=== PATIENT | male | born 1995 | race Caucasian/White ===

== ENCOUNTER 2018-10-24 00:53 | Emergency (ER) | payer BC ==
--- NOTE | 2018-10-24 00:55 | EDM.PDOC ---
ED HPI GENERAL MEDICAL PROBLEM - General Stated Complaint: CHEST PAIN,DIZZINESS,TROUBLE BREATHING Time Seen by Provider: 10/24/18 00:54 Source of Information: Reports: Patient History Limitations: Reports: No Limitations - History of Present Illness INITIAL COMMENTS - FREE TEXT/NARRATIVE: 22 y.o.w.m came to the ed due to epigastric and chest pt. Pt was previously in healthy condition. No N/V/D no dizziness, no other acute med issues. BP 138/67 RR 18 Pulse ox 100% on RA Pulse 60 Temp 36.7 Onset Date: 10/23/18 Onset Time: 07:00 Duration: Hour(s):, Intermittent Location: Reports: Chest, Abdomen Quality: Reports: Burning Severity: Moderate Improves with: Reports: None Worsens with: Reports: None Context: Reports: Other Associated Symptoms: Reports: Chest Pain mid chest Pain Score (Numeric/FACES): 6 - Related Data Allergies Allergy/AdvReac Type Severity Reaction Status Date / Time No Known Allergies Allergy Verified 08/27/18 23:55 Home Meds: Home Meds NK [No Known Home Meds] 08/27/18 [History] Past Medical History - Past Health History Medical/Surgical History: Denies Medical/Surgical History Social & Family History - Family History Family Medical History: Noncontributory - Caffeine Use Caffeine Use: Reports: Coffee, Soda ED ROS GENERAL - Review of Systems Review Of Systems: See Below Constitutional: Reports: No Symptoms HEENT: Reports: No Symptoms Respiratory: Reports: No Symptoms Cardiovascular: Reports: Chest Pain Endocrine: Reports: No Symptoms GI/Abdominal: Reports: Abdominal Pain (epigastric) : Reports: No Symptoms Musculoskeletal: Reports: No Symptoms Skin: Reports: No Symptoms Neurological: Reports: No Symptoms Psychiatric: Reports: No Symptoms Hematologic/Lymphatic: Reports: No Symptoms Immunologic: Reports: No Symptoms ED EXAM, GENERAL - Physical Exam Exam: See Below Exam Limited By: No Limitations General Appearance: Alert, WD/WN, Mild Distress Eye Exam: Bilateral Eye: Normal Inspection Ears: Normal External Exam Ear Exam: Bilateral Ear: Auricle Normal Nose: Normal Inspection, Normal Mucosa Throat/Mouth: Normal Inspection, Normal Lips, Normal Teeth, Normal Gums, Normal Voice, No Airway Compromise Head: Atraumatic, Normocephalic Neck: Normal Inspection, Supple, Non-Tender Respiratory/Chest: No Respiratory Distress, Lungs Clear, Normal Breath Sounds Cardiovascular: Normal Peripheral Pulses, Regular Rate, Rhythm, No Edema, No JVD , No Murmur Peripheral Pulses: 2+: Brachial (L) GI/Abdominal: Normal Bowel Sounds, Soft, Tender (epigastric) (Male) Exam: Deferred Rectal (Males) Exam: Deferred Back Exam: Normal Inspection, Full Range of Motion Extremities: Normal Inspection, Normal Range of Motion, Non-Tender, No Pedal Edema Neurological: Alert, Oriented, CN II-XII Intact, Normal Cognition, Normal Gait, No Motor/Sensory Deficits Psychiatric: Normal Affect, Normal Mood Skin Exam: Warm, Dry, Intact, Normal Color, No Rash Lymphatic: No Adenopathy EKG INTERPRETATION EKG Date: 10/24/18 Time: 01:00 Rhythm: NSR Rate (Beats/Min): 53 [place]: Normal P-Wave: Present QRS: Normal ST-T: Normal QT: Normal Comparison: NA - No Prior EKG Course - Vital Signs Text/Narrative:: 22 y.o.w.m came to the ed due to epigastric and chest pt. Pt was previously in healthy condition. No N/V/D no dizziness, no other acute med issues. BP 138/67 RR 18 Pulse ox 100% on RA Pulse 60 Temp 36.7 PE: WNWD WM with epigastric and chest wall pain Labs/imaging: not indicated Impression: Atypica chest pain Tx: Toradol, GI cocktail Reexam: CP and epigastric pain subsided 100% Plan: D/C with instructions Last Recorded V/S: Last Vital Signs Temp 36.7 C 10/24/18 02:05 Pulse 60 10/24/18 02:05 Resp 17 10/24/18 02:05 BP 107/52 L 10/24/18 02:05 Pulse Ox 100 10/24/18 02:05 - Orders/Labs/Meds Orders: Active Orders 24 hr Category Date Time Status EKG Documentation Completion [RC] ASDIRECTED Care 10/24/18 01:00 Active EKG 12 Lead [EK] Routine Ther 10/24/18 00:59 Ordered Meds: Medications Discontinued Medications Generic Name Dose Route Start Last Admin Trade Name Freq PRN Reason Stop Dose Admin Al Hydroxide/Mg Hydroxide 15 0 ml 10/24/18 00:59 10/24/18 01:29 ml/ Lidocaine HCl 15 ml PO 10/24/18 01:00 30 ml ONETIME ONE Administration Ketorolac Tromethamine 60 mg 10/24/18 01:13 10/24/18 01:29 Toradol IM 10/24/18 01:14 60 mg ONETIME ONE Administration Ondansetron HCl 8 mg 10/24/18 00:59 10/24/18 01:29 Zofran Odt PO 10/24/18 01:00 8 mg ONETIME ONE Administration Departure - Departure Time of Disposition: 02:13 Disposition: Home, Self-Care 01 Condition: Good Clinical Impression: Atypical chest pain Instructions: Nonspecific Chest Pain, [id number] Referrals: Joann Wade, CHILD DAYCARE WORKER [Primary Care Provider] - Forms: ED Department Discharge Additional Instructions: Please take motrin for pain, please f/u, come back if your symptoms get worse acutely - My Orders Last 24 Hours: My Active Orders 10/24/18 00:59 EKG 12 Lead [EK] Routine 10/24/18 01:00 EKG Documentation Completion [RC] ASDIRECTED - Assessment/Plan Last 24 Hours: My Active Orders 10/24/18 00:59 EKG 12 Lead [EK] Routine 10/24/18 01:00 EKG Documentation Completion [RC] ASDIRECTED
[2018-10-24] MEDS ORDERED: Alum Hydroxide/Mag Hydroxide 15 ML, Lidocaine 2% 15 ML PO ONE ×2 (00:59)
[2018-10-24] MEDS ORDERED: Ondansetron 8 MG Tab.DIS PO ONE (00:59)
[2018-10-24] MEDS ORDERED: Ketorolac 60 MG/2 ML SDV IM ONE (01:13)
== END 2018-10-24 02:19 | disposition home or self-care (01) ==
LOC: FB.ED 00:53
DX: R07.89 Other chest pain (principal)
CPT/HCPCS: 93005; 96372; 99284; A9270; J1885